=== PATIENT | female | born 1985 | race American Indian/Alaskan Native ===

== ENCOUNTER 2018-08-02 15:09 | Emergency (ER) | payer MEDICAID, OTHER ==
[2018-08-02 15:21] VITALS: BP 127/80
[2018-08-02 16:02] LABS: HCG Qualitative,Urine Positive (Negative)
[2018-08-02] MEDS ORDERED: REGLAN IV ONE (16:06)
[2018-08-02] MEDS ORDERED: NACL 0.9% 1000 ML 1,000 ML IV ONE (16:06)
[2018-08-02 16:07] LABS: Bilirubin,Urine NEG (Negative); Blood,Urine NEG (Negative); Color,Urine Yellow (Yellow); Mucus,Urine 2+ /HPF; Protein,Urine <15 mg/dL mg/dL (Negative); Urobilinogen,Urine < 2.0 mg/dL (<2.0)
--- NOTE | 2018-08-02 16:07 | Emergency Department Report ---
Vomiting/Diarrhea - HPI Chief Complaint: Nausea/Vomiting/Diarrhea Stated Complaint: 6WKS PREG/N/V Time Seen by Provider: 08/02/18 15:52 Nausea/Vomiting Severity: Mild Diarrhea Severity: None Pain Severity: None Symptoms: No Watery Diarrhea, No Bloody diarrhea, No Fever, No Able to Tolerate Fluids, No Recent Unusual Foods, No Recent Untreated Water, No Recent use of Ant ibiotics, No Family w/ Similar Symptoms, No Contacts w/ Similar Symptoms, No Rash, No Hematuria, No Recent URI Symptoms Other History: This is a 33 year-old to 1 presents to the ED at approximately 6 weeks complaining of nausea vomiting for the past 4 days. Patient states the past 4 days is worse or she is unable to keep food down. Patient states she has an MANAGEMENT ASSOCIATE appointment in 2 weeks. Patient states she was seen by primary care physician last week. She denies vaginal bleeding, pelvic pain, abdominal pain, chest pain dizziness or headache ED Review of Systems ROS: Stated complaint: 6WKS PREG/N/V Other details as noted in HPI Comment: All other systems reviewed and negative ED Past Medical Hx - Past Medical History Previous Medical History?: Yes Hx Asthma: Yes - Surgical History Additional Surgical History: - Social History Smoking Status: Never Smoker Substance Use Type: None - Medications Home Medications: Home Medications Medication Instructions Recorded Confirmed Last Taken Type Amoxicillin [Trimox CAP] 500 mg PO Q8H #21 capsule 01/22/15 Unknown Rx HYDROcodone/APAP 10-325 [[place] 1 each PO Q6HR PRN #16 tablet 01/22/15 Unknown Rx 10/325] Doxylamine Succinate/Vit B6 2 each PO QHS #40 tablet. 08/02/18 Unknown Rx [Horacio Cordero 10-10 mg Tablet] Vomiting Diarrhea Exam - Exam General: Vital signs noted. No distress. Alert and acting appropriately. HEENT: Yes Moist Mucous Membranes, No Pharyngeal Erythema, No Pharyngeal Exudates, No Rhinorrhea, No Conjuctival Injection, No Frontal Tenderness, No Ma xillary Tenderness Neck: No Adenopathy, No Rigidity Lungs: Yes Clear Lung Sounds, Yes Good Air Exchange, No Wheezes, No Stridor, No Cough, No Nasal Flaring, No Retractions, No Use of Accessory Muscles Heart exam: Regular: Yes, Murmur: No, Tachycardia: No Abdomen: Tenderness: No, Peritoneal Signs: No, Distention: No, Hyperactive Bowel sounds: No Skin exam: Rash: No, Edema: No, Normal turgor: Yes Neurologic: Alert and oriented, no deficits. Musculoskeletal: Unremarkable. ED Course Vital Signs 08/02/18 15:14 Temperature 99 F Pulse Rate 107 H Blood Pressure 127/80 O2 Sat by Pulse 100 Oximetry ED Medical Decision Making - Lab Data Result diagrams: 08/02/18 16:20 08/02/18 16:20 - Medical Decision Making 33-year-old female presents with acute nausea vomiting during CBC, BMP, urine test, urinalysis and beta quant hCG all ordered. All labs within normal limits, patient received 1 L of fluids, 8 mg Zofran IV. About 400 mL into her normal saline IV drip, patient states that she wants to have her IV taken out taken out. Patient reports feeling much better after the Zofran. Signed discussed the patient and keep her appointment with MANAGEMENT ASSOCIATE in follow-up. Patient had no active vomiting in the ED. Critical care attestation.: If time is entered above; I have spent that time in minutes in the direct care of this critically ill patient, excluding procedure time. ED Disposition Clinical Impression: Nausea and vomiting during Disposition: DC-01 TO HOME OR SELFCARE Is pt being admited?: No Does the pt Need Aspirin: No Condition: Stable Instructions: Morning Sickness (ED), (ED), Acute Nausea and Vomiting (ED) Additional Instructions: Make sure to follow up with your MANAGEMENT ASSOCIATE as discussed. Take all your medications as you've been prescribed. If you have any worsening symptoms or develop new symptoms please return to ED immediately. Prescriptions: Doxylamine Succinate/Vit B6 [Horacio Cordero 10-10 mg Tablet] 2 each PO QHS #40 tablet. Referrals: PRIMARY CARE, [Primary Care Provider] - 3-5 Days Forms: Work/School Release Form(ED) Time of Disposition: 17:29
[2018-08-02 16:28] LABS: Hematocrit 37.4 % (30.3-42.9); Hemoglobin 12.5 gm/dl (10.1-14.3); Mean Corpuscular HGB Conc 33 % (30-34); Mean Corpuscular Volume 88 fl (79-97); Platelet Count 219 K/mm3 (140-440); Red Blood Count 4.27 M/mm3 (3.65-5.03); Red Cell Distribution Width 12.5 % (13.2-15.2)
[2018-08-02 16:49] LABS: BUN/Creatinine Ratio 15; Blood Urea Nitrogen 9 mg/dL (7-17); Calcium 8.9 mg/dL (8.4-10.2); Hemolysis Index 6
== END 2018-08-02 17:41 | disposition home or self-care (01) ==
LOC: ED 15:09
DX: O26.891 Other specified pregnancy related conditions, first trimester (principal); O21.8 Other vomiting complicating pregnancy; R11.0 Nausea; O99.511 Diseases of the respiratory system complicating pregnancy, first trimester; Z3A.01 Less than 8 weeks gestation of pregnancy
CPT/HCPCS: 36415; 80048; 81001; 81025; 84702; 85027; 96374; 99283; J2765; J7030

== ENCOUNTER 2020-09-25 12:29 | Emergency (ER) | payer MEDICAID ==
[2020-09-25 12:49] VITALS: BP 131/81
[2020-09-25] MEDS ORDERED: SODIUM CHLORIDE 0.9% 1000 ML 1,000 ML IV ONE (13:16)
[2020-09-25] MEDS ORDERED: diphenhydrAMINE 50 MG/ML VIAL IV ONE (13:16)
[2020-09-25] MEDS ORDERED: METOCLOPRAMIDE 10 MG/2 ML INJ IV ONE (13:16)
--- NOTE | 2020-09-25 13:54 | Emergency Department Report ---
ED Headache HPI - General Chief Complaint: Headache Stated Complaint: HEAD PAIN Time Seen by Provider: 09/25/20 12:42 Source: patient, RN notes reviewed Exam Limitations: no limitations - History of Present Illness Initial Comments: This is a 35-year-old female nontoxic, well nourished in appearance, no acute signs of distress presents to the ED with c/o of headache x2 days. Patient describes headache as frontal headache with level of 8 out of 10. Stated has been taking [id number] medication with minimal to no relief. Patient denies thunderclap headache. Patient denies any radiation of pain. Patient denies any head trauma. Patient denies any visual changes. Patient denies worse headache. Patient stated that darkness makes headache better and bright lights make the headache worse. Patient denies any numbness, tingling, fever, chills, nausea, vomiting, chest pain, shortness of breath, stiff neck. Patient denies facial drooping or one sided weakness. Patient denies any radiation of pain. Patient denies any allergies. Timing/Duration: episodic Quality: mild Head Injury Location: frontal Recent Head Trauma: no recent headache/trauma Associated Symptoms: denies symptoms. denies: confusion, fatigue, facial pain, fever/chills, flushing, loss of consciousness, nausea/vomiting, nasal congestion, nasal drainage, numbness in legs/feet, rash, seizures, sinus infection, stiff neck, vision changes, weakness Allergies/Adverse Reactions: Allergies No Known Allergies Allergy (Unverified 01/22/15 11:03) Home Medications: Ambulatory Orders Amoxicillin [Trimox CAP] 500 mg PO Q8H #21 capsule 01/22/15 HYDROcodone/APAP 10-325 [[place] 10/325] 1 each PO Q6HR PRN #16 tablet 01/22/15 Doxylamine Succinate/Vit B6 [Diclegis Dr 10-10 mg Tablet] 2 each PO QHS #40 tablet. 08/02/18 ED Review of Systems ROS: Stated complaint: HEAD PAIN Other details as noted in HPI Comment: All other systems reviewed and negative Constitutional: denies: chills, fever Eyes: denies: eye pain, eye discharge, vision change ENT: denies: ear pain, throat pain Respiratory: denies: cough, shortness of breath, wheezing Cardiovascular: denies: chest pain, palpitations Endocrine: no symptoms reported Gastrointestinal: denies: abdominal pain, nausea, diarrhea Genitourinary: denies: urgency, dysuria, discharge Musculoskeletal: denies: back pain, joint swelling, arthralgia Skin: denies: rash, lesions Neurological: headache. denies: weakness, paresthesias Psychiatric: denies: anxiety, depression Hematological/Lymphatic: denies: easy bleeding, easy bruising ED Past Medical Hx - Past Medical History Previous Medical History?: Yes Hx Asthma: Yes - Surgical History Past Surgical History?: Yes Additional Surgical History: - Social History Smoking Status: Never Smoker Substance Use Type: None - Medications Home Medications: Home Medications Medication Instructions Recorded Confirmed Last Taken Type Amoxicillin [Trimox CAP] 500 mg PO Q8H #21 capsule 01/22/15 Unknown Rx HYDROcodone/APAP 10-325 [[place] 1 each PO Q6HR PRN #16 tablet 01/22/15 Unknown Rx 10/325] Doxylamine Succinate/Vit B6 2 each PO QHS #40 tablet. 08/02/18 Unknown Rx [Horacio Cordero 10-10 mg Tablet] ED Physical Exam - General Limitations: No Limitations General appearance: alert, in no apparent distress - Head Head exam: Present: atraumatic, normocephalic - Eye Eye exam: Present: normal appearance, PERRL, EOMI - ENT ENT exam: Present: normal exam, normal orophraynx - Neck Neck exam: Present: normal inspection, full ROM. Absent: tenderness, meningismus, lymphadenopathy - Respiratory Respiratory exam: Absent: respiratory distress - Cardiovascular Cardiovascular Exam: Present: regular rate - Extremities Exam Extremities exam: Present: full ROM - Back Exam Back exam: Present: normal inspection, full ROM. Absent: tenderness - Neurological Exam Neurological exam: Present: alert, oriented X3, normal gait - Expanded Neurological Exam Expanded Patient oriented to: Present: person, place, time Cranial nerves: EOM's Intact: Normal, Facial Sensation: Normal Cerebellar function: Finger to Nose: Normal Upper motor neuron: Pronator Drift: Normal, Sensory Extinction: Normal Motor strength exam: RUE: 5, LUE: 5, RLE: 5, LLE: 5 Best Eye Response ([place]): (4) open spontaneously Best Motor Response (Kunal): (6) obeys commands Best Verbal Response (Kunal): (5) oriented Morning Sun Total: 15 - Psychiatric Psychiatric exam: Present: normal affect, normal mood - Skin Skin exam: Present: warm, dry, intact, normal color. Absent: rash ED Course Vital Signs 09/25/20 12:44 Temperature 98.2 F Pulse Rate 94 H Respiratory 16 Rate Blood Pressure 131/81 O2 Sat by Pulse 96 Oximetry - Reevaluation(s) Reevaluation #1: 09/25/20 13:54 Patient is speaking in full sentences with no signs of distress noted. ED Medical Decision Making - Radiology Data [facility] [address] [place] [address] Cat Scan Report Signed Patient: KARRIE DISLA MR#: [id number] : 1985 Acct:[id number] Age/Sex: 35 / F ADM Date: 09/25/20 Loc: ED Attending Dr: Ordering Physician: ESVIN HU NP Date of Service: 09/25/20 Procedure(s): CT head/brain wo con Accession Number(s): [id number] cc: ESVIN HU NP CT HEAD WITHOUT CONTRAST INDICATION : acute headache. TECHNIQUE: Axial, coronal and sagittal CT imaging was performed from the skull apex through the skull base without contrast. All CT scans at this location are performed using CT dose reduction for ALARA by means of automated exposure control. COMPARISON: None available. FINDINGS: PARENCHYMA: No mass, midline shift, hemorrhage, extraaxial collection or acute territorial infarction. VENTRICLES: Symmetric and normal in size. SOFT TISSUES: No significant abnormality of the included soft tissues/orbits. BONES: No acute osseous abnormality. SINUSES: No significant abnormality. ADDITIONAL FINDINGS: None. IMPRESSION: 1. No acute intracranial abnormality. Signer Name: Tristan Flores MD Signed: 09/25/2020 1:57 PM Workstation Name: [id number] Transcribed By: MN Dictated By: Tristan Flores MD Electronically Authenticated By: Tristan Flores MD Signed Date/Time: 09/25/20 1357 DD/ 1356 TD/TT: - Medical Decision Making This is a 35-year-old female that presents with headache. Patient is stable and was examined by me. Patient is neurologically stable. There is no stiff neck or neck pain. Vital signs are stable. Patient is afebrile. Patient received Benadryl, Reglan, and 1 L of normal saline. CT scan has been obtained and dictated by radiologist. Prior to CT results, after patient received the treatment in the ER patient stated she has a emergency and has to leave. Patient was instructed and educated my concerns for further evaluation and treatment but patient refused and signed AGAINST MEDICAL ADVICE. Patient was instructed to follow-up with a primary care doctor in as soon as possible or if symptoms worsen and continue return to emergency room as soon as possible. At time of signing AMA, the patient does not seem toxic or ill in appearance. No acute signs of distress noted. No further questions noted by the patient. Critical care attestation.: If time is entered above; I have spent that time in minutes in the direct care of this critically ill patient, excluding procedure time. ED Disposition Clinical Impression: Acute headache Qualifiers: Headache type: unspecified Intractability: not intractable Qualified Code(s): R51.9 - Headache, unspecified Disposition: LEFT AGAINST MED ADVICE Is pt being admited?: No Does the pt Need Aspirin: No Condition: Undetermined Additional Instructions: Follow-up with a primary care doctor in as soon as possible or if symptoms worsen and continue return to emergency room as soon as possible. Your condition may be serious as instructed and educated today in the ER but you decided to leave AGAINST MEDICAL ADVICE. It is highly recommended to see a provider as soon as possible to rule out serious complications that was described to you during your ED stay. Referrals: ELISA DUMONT MD [Primary Care Provider] - DAYNA JOVEL MD [Staff Physician] - LOAN Forms: AMA Form Time of Disposition: 14:09
--- NOTE | 2020-09-25 14:01 | Cat Scan Report ---
CT HEAD WITHOUT CONTRAST INDICATION : acute headache. TECHNIQUE: Axial, coronal and sagittal CT imaging was performed from the skull apex through the skul l base without contrast. All CT scans at this location are performed using CT dose reduction for ALA RA by means of automated exposure control. COMPARISON: None available. FINDINGS: PARENCHYMA: No mass, midline shift, hemorrhage, extraaxial collection or acute territorial infarctio n. VENTRICLES: Symmetric and normal in size. SOFT TISSUES: No significant abnormality of the included soft tissues/orbits. BONES: No acute osseous abnormality. SINUSES: No significant abnormality. ADDITIONAL FINDINGS: None. IMPRESSION: 1. No acute intracranial abnormality. Signer Name: Tristan Flores MD Signed: 09/25/2020 1:57 PM Workstation Name: [id number]
== END 2020-09-25 14:15 | disposition left against medical advice (07) ==
LOC: ED 12:29
DX: R51.9 Headache, unspecified (principal); J45.909 Unspecified asthma, uncomplicated; Z98.890 Other specified postprocedural states; Z79.2 Long term (current) use of antibiotics; Z79.899 Other long term (current) drug therapy
CPT/HCPCS: 70450; 96374; 96375; 99283; J1200; J2765; J7030

== ENCOUNTER 2020-10-21 09:41 | Emergency (ER) | payer MEDICAID ==
--- NOTE | 2020-10-21 10:39 | Event Note ---
ED Screening Note Date of service: 10/21/20 Time: 10:37 ED Screening Note: 35-year-old female patient with history of asthma and allergies presents to the emergency department with complaints of right sided headache starting 2 days ago with associated syncope (x1 yesterday), dizziness, hematemesis (x2 last night), and photosensitivity starting yesterday. Patient states her headache is the primary concern. She was seen in the emergency department in September 2020 for similar symptoms. Head CT obtained at that time was unremarkable. General: Awake, appropriately interactive, no acute distress. HEENT: Pupils equal round reactive to light. Extraocular movements intact. No nystagmus. Right TM is unremarkable. There is tenderness to palpation along the distribution of the right temporal artery. No palpable cord. Pain is reproducible with jaw movement. Neck: Supple. Full range of motion intact. Cardiovascular: Normal peripheral perfusion. Pulmonary: No respiratory distress. Patient is speaking normally without use of accessory muscles. Skin: No apparent rashes or lesions. Neurological: No facial asymmetry. Speech is clear. Follows commands. Patient is alert and oriented. Ambulatory without assistance. Strength and sensation intact throughout. Musculoskeletal: Moves all four extremities spontaneously with normal range of motion. Psych: Cooperative. Appropriate mood and affect. This initial assessment/diagnostic orders/clinical plan/treatment(s) is/are subject to change based on patients health status, clinical progression and re- assessment by fellow clinical providers in the ED. Further treatment and workup at subsequent clinical providers discretion. Patient/guardian urged not to elope from the ED as their condition may be serious if not clinically assessed and managed.
[2020-10-21 11:22] LABS: Basophils % (Auto) 0.4 % (0.0-1.8); Eosinophils # (Auto) 0.1 K/mm3 (0.0-0.4); Eosinophils % (Auto) 0.7 % (0.0-4.3); Hematocrit 37.5 % (30.3-42.9); Hemoglobin 12.7 gm/dl (10.1-14.3); Lymphocytes # (Auto) 1.6 K/mm3 (1.2-5.4); Lymphocytes % (Auto) 15.5 % (13.4-35.0); Mean Corpuscular HGB Conc 34 % (30-34); Mean Corpuscular Volume 89 fl (79-97); Monocytes # (Auto) 0.9 K/mm3 (0.0-0.8); Monocytes % (Auto) 8.5 % (0.0-7.3); Platelet Count 250 K/mm3 (140-440); Red Blood Count 4.21 M/mm3 (3.65-5.03); Red Cell Distribution Width 13.4 % (13.2-15.2)
[2020-10-21 11:32] LABS: INR 1.04 (0.87-1.13); Partial Thromboplastin Time 29.8 Sec. (24.2-36.6)
[2020-10-21 11:42] LABS: Alanine Aminotransferase 9 units/L (7-56); Albumin 3.6 g/dL (3.9-5); BUN/Creatinine Ratio 9; Blood Urea Nitrogen 7 mg/dL (7-17); Calcium 8.8 mg/dL (8.4-10.2); Hemolysis Index 12
[2020-10-21 12:14] LABS: Erythrocyte Sedimentation Rate 65 mm/Hr (0-20)
[2020-10-21] MEDS ORDERED: SODIUM CHLORIDE 0.9% 1000 ML 1,000 ML IV ONE (13:02)
[2020-10-21] MEDS ORDERED: diphenhydrAMINE 50 MG/ML VIAL IV STA (13:02)
[2020-10-21] MEDS ORDERED: KETOROLAC 30 MG/1 ML INJ IV STA (13:02)
[2020-10-21] MEDS ORDERED: METOCLOPRAMIDE 10 MG/2 ML INJ IV STA (13:02)
[2020-10-21 13:03] VITALS: BP 128/71
--- NOTE | 2020-10-21 15:27 | Emergency Department Report ---
ED Headache HPI - General Chief Complaint: Headache Stated Complaint: THROWING UP BLOOD/HEAD PAIN/CHILLS Time Seen by Provider: 10/21/20 13:00 - History of Present Illness Initial Comments: 35-year-old female presents to the emergency emerge department complaining of having a dull throbbing headache to the right sided parietal region and with is been present for the last 2 days. She had a similar episode earlier this month when she came to the emergency department complaining of pain she did obtain a CT scan during that time however she did not wait around for the results or any treatment the headache did resolve spontaneously but has pain is reemerged with the same intensity. She reports no presyncope no ear pain no dizziness no nausea, no vomiting. No chest pain or palpitation Quality: mild Head Injury Location: frontal, parietal Recent Head Trauma: occasional headaches Associated Symptoms: denies: confusion, facial pain, fever/chills, flushing, nausea/vomiting, nasal congestion, numbness in legs/feet, rash, seizures, sinus infection, stiff neck, vision changes Allergies/Adverse Reactions: Allergies No Known Allergies Allergy (Unverified 01/22/15 11:03) Home Medications: Ambulatory Orders Amoxicillin [Trimox CAP] 500 mg PO Q8H #21 capsule 01/22/15 HYDROcodone/APAP 10-325 [[place] 10/325] 1 each PO Q6HR PRN #16 tablet 01/22/15 Doxylamine Succinate/Vit B6 [Diccassandra Dr 10-10 mg Tablet] 2 each PO QHS #40 tablet. 08/02/18 Butalb/Acetaminophen/Caffeine [Fioricet 50-300-40 mg CAP] 1 cap PO Q8HR PRN #20 cap 10/21/20 ED Review of Systems ROS: Stated complaint: THROWING UP BLOOD/HEAD PAIN/CHILLS Other details as noted in HPI Comment: All other systems reviewed and negative ED Past Medical Hx - Past Medical History Previous Medical History?: Yes Hx Asthma: Yes - Surgical History Past Surgical History?: Yes Additional Surgical History: - Social History Smoking Status: Never Smoker Substance Use Type: None - Medications Home Medications: Home Medications Medication Instructions Recorded Confirmed Last Taken Type Amoxicillin [Trimox CAP] 500 mg PO Q8H #21 capsule 01/22/15 Unknown Rx HYDROcodone/APAP 10-325 [[place] 1 each PO Q6HR PRN #16 tablet 01/22/15 Unknown Rx 10/325] Doxylamine Succinate/Vit B6 2 each PO QHS #40 tablet. 08/02/18 Unknown Rx [Diclegis 10-10 mg Tablet] Butalb/Acetaminophen/Caffeine 1 cap PO Q8HR PRN #20 cap 10/21/20 Unknown Rx [Fioricet 50-300-40 mg CAP] ED Physical Exam - General Limitations: No Limitations General appearance: alert, in no apparent distress - Head Head exam: Present: atraumatic, normocephalic - Eye Eye exam: Present: normal appearance, PERRL, EOMI, other (Negative funduscopic examination no). Absent: nystagmus Pupils: Present: normal accommodation - ENT ENT exam: Present: normal exam, mucous membranes moist, TM's normal bilaterally - Neck Neck exam: Present: normal inspection, full ROM - Respiratory Respiratory exam: Present: normal lung sounds bilaterally. Absent: respiratory distress - Cardiovascular Cardiovascular Exam: Present: regular rate, normal rhythm. Absent: systolic murmur, diastolic murmur, rubs, gallop - GI/Abdominal GI/Abdominal exam: Present: soft, normal bowel sounds - Extremities Exam Extremities exam: Present: normal inspection, normal capillary refill - Back Exam Back exam: Present: normal inspection. Absent: CVA tenderness (R), CVA tenderness (L) - Neurological Exam Neurological exam: Present: alert, oriented X3, CN II-XII intact - Psychiatric Psychiatric exam: Present: normal affect, normal mood - Skin Skin exam: Present: warm, dry, intact, normal color. Absent: rash ED Course Vital Signs 10/21/20 10/21/20 09:41 13:01 Temperature 98.2 F 97.7 F Pulse Rate 81 91 H Respiratory 18 20 Rate Blood Pressure 132/85 Blood Pressure 128/71 [left arm] O2 Sat by Pulse 100 100 Oximetry ED Medical Decision Making - Lab Data Result diagrams: 10/21/20 10:55 10/21/20 10:55 - Radiology Data Radiology results: report reviewed [address] [place] [address] Cat Scan Report Signed Patient: KARRIE DISLA MR#: [id number] : 1985 Acct:[id number] Age/Sex: 35 / F ADM Date: 09/25/20 Loc: ED Attending Dr: Ordering Physician: ESVIN HU NP Date of Service: 09/25/20 Procedure(s): CT head/brain wo con Accession Number(s): [id number] cc: ESVIN HU NP CT HEAD WITHOUT CONTRAST INDICATION : acute headache. TECHNIQUE: Axial, coronal and sagittal CT imaging was performed from the skull apex through the skull base without contrast. All CT scans at this location are performed using CT dose reduction for ALARA by means of automated exposure control. COMPARISON: None available. FINDINGS: PARENCHYMA: No mass, midline shift, hemorrhage, extraaxial collection or acute territorial infarction. VENTRICLES: Symmetric and normal in size. SOFT TISSUES: No significant abnormality of the included soft tissues/orbits. BONES: No acute osseous abnormality. SINUSES: No significant abnormality. ADDITIONAL FINDINGS: None. IMPRESSION: 1. No acute intracranial abnormality. Signer Name: Tristan Flores MD Signed: 09/25/2020 1:57 PM Workstation Name: [id number] Transcribed By: MN Dictated By: Tristan Flores MD Electronically Authenticated By: Tristan Flores MD Signed Date/Time: 09/25/20 135 DD/ 1356 TD/TT: Print Cancel - Medical Decision Making This patient presents with a headache most consistent with tension. Differential diagnosis includes migraine versus tension type headache. No headache red flags. Neurologic exam without evidence of meningismus, focal neurologic findings.Based on the patient's history and physical there is very low clinical suspicion for significant intracranial pathology. The headache was NOT sudden onset, NOT maximal at onset, there are NO neurologic findings, the patient does NOT have a fever, the patient does NOT have any jaw claudication, the patient does NOT endorse a clotting disorder, patient DENIES any trauma or eye pain and the headache is NOT associated with dizziness or ataxia. Presentation not consistent with acute intracranial bleed to include SAH (lack of risk factors, headache history). Presentation not consistent with acute TIMBER FELLER infection to include meningitis or brain abscess, Temporal arteritis unlikely, as is acute angle closure glaucoma given history and physical findings. Presentation not consistent with other acute, emergent causes of headache at this time. Plan to treat symptomatically with pain medication. No indication for imaging/LP at this time. Plan: pain medication, CT brain was normal, serial reassessment Critical care attestation.: If time is entered above; I have spent that time in minutes in the direct care of this critically ill patient, excluding procedure time. ED Disposition Clinical Impression: Cephalgia Disposition: DC-01 TO HOME OR SELFCARE Is pt being admited?: No Does the pt Need Aspirin: No Condition: Stable Instructions: General Headache Without Cause Prescriptions: Butalb/Acetaminophen/Caffeine [Fioricet 50-300-40 mg CAP] 1 cap PO Q8HR PRN #20 cap PRN Reason: Headache Referrals: PRIMARY CAREMD [Primary Care Provider] - 3-5 Days DU CASTANO MD [Staff Physician] - 3-5 Days
== END 2020-10-21 15:35 | disposition home or self-care (01) ==
LOC: ED 09:41
DX: R51.9 Headache, unspecified (principal); J45.909 Unspecified asthma, uncomplicated; Z98.890 Other specified postprocedural states; Z79.2 Long term (current) use of antibiotics; Z79.899 Other long term (current) drug therapy
CPT/HCPCS: 36415; 80053; 83735; 85025; 85610; 85652; 85730; 96361; 96374; 96375; 99283; J1200; J1885; J2765; J7030